=== PATIENT | female | born 1930 | race Caucasian/White ===

== ENCOUNTER 2017-01-08 08:22 | Emergency (ER) | payer OTHER ==
[~2017-01-08] VITALS: Ht 160 cm; Wt 61.0 kg
[~2017-01-08 08:22] MED LIST: AMBIEN10 MG PO; ASPIR-TRIN325 M1 PO; ATIVAN0.5 MG PO; ATIVAN1 MG PO; ATORVASTATIN CA10 MG PO; AUGMENTIN875 MG PO; BENICAR40 MG PO; BESIVANCE5 ML BOTH EYES; CALCIUM 600 MG1 EACH PO; CALCIUM500 M4 PO; CIPRO250 MG PO; CLONIDINE HCL0.1 MG PO; DUREZOL 0.100 DROP/5 BOTH EYES; FIORICET,ESG1 TABLET PO; FLAGYL500 MG PO; INSPRA25 MG PO; LEXAPRO5 MG PO; LIPITOR10 MG PO; LISINOPRIL-HCT1 EAC3 PO; LOPRESSOR50 MG PO; LORAZEPAM1 MG PO; METHYLPREDNISOLO4 M1 PO; MINOXIDIL2.5 MG PO; NEXIUM 24HR20 MG PO; NEXIUM20 MG PO; ONDANSETRON HCL4 MG PO; PERCOCET 5/31 TABLET PO; PROLENSA1.6 ML BOTH EYES; SPIRONOLACTONE25 MG PO; TRAMADOL HCL50 MG PO; ULTRAM50 MG PO; VITAMIN D1000 INTUN PO; VITAMIN D1000 UNIT PO; VITAMIN D400 UNIT PO
[2017-01-08 09:57] LABS: HEMATOCRIT 38.9 % (36.0-46.0); MCH 29.7 PG (29.0-34.0); MCHC 33.4 G/DL (30.0-36.0); MCV 88.8 FL (83-99); MEAN PLAT.VOLUME 10.1 uM^3 (9.5-12.4); PLATELET COUNT 196 K/uL (156-360); RBC DIS.WIDTH-CV 12.7 % (11.8-14.6); RBC DIS.WIDTH-SD 41.2 % (39-53); RED BLOOD COUNT 4.38 M/uL (3.80-5.20)
[2017-01-08 10:05] LABS: CHLORIDE 103 mEq/L (99-109); POTASSIUM 4.4 mEq/L (3.7-5.4); SODIUM 132 mEq/L (136-147)
[2017-01-08 10:07] LABS: GLUCOSE 103 mg/dL (70-99)
[2017-01-08 10:09] LABS: ANION GAP 6 MEQ/L (2-14); TOTAL BILIRUBIN 0.8 mg/dL (0.0-1.0)
[2017-01-08 10:11] LABS: ALKALINE PHOSPHATASE 72 IU/L (3-129); GFR ESTIMATE (CALCULATED) > 59 mL/min/
[2017-01-08 10:12] LABS: UREA NITROGEN (BUN) 11 mg/dL (9-23)
[2017-01-08 10:17] LABS: TROP-I INTERPRETATION NEGATIVE; TROPONIN-I < 0.01 ng/mL (0.0-0.30)
[2017-01-08 15:20] LABS: APPEARANCE CLEAR/COLORLESS
[2017-01-08 15:21] LABS: RED CELL AREA COUNTED 18; RED CELL COUNT 0 /MM^3 (0-1); RED CELL DILUTION 1; WBC AREA COUNTED 18; WBC DILUTION 1; WHITE CELL COUNT 2 /MM^3 (0-5); WHITE CELL RAW COUNT 4
[2017-01-08 15:30] LABS: CSF EOSINOPHILS 0 % (0-25); MONO RAW COUNT 2; MONONUCLEAR WBC'S 100 % (50-90); POLYNUCLEAR WBC'S 0 % (0-3)
[2017-01-08 16:22] VITALS: BP 110/62
== END 2017-01-08 16:23 | disposition home or self-care (01) ==
LOC: EME 08:22
PROVIDERS: Emergency Medicine; Nurse Practitioner Family
PROC: 009U3ZX Drainage of Spinal Canal, Percutaneous Approach, Diagnostic (ICD-10-PCS; principal; 2017-01-08)
DX: R51 Headache (principal); I10 Essential (primary) hypertension; R00.1 Bradycardia, unspecified; I44.0 Atrioventricular block, first degree; Z87.891 Personal history of nicotine dependence
CPT/HCPCS: 70450; 80053; 82945; 84157; 84484; 85027; 87070; 87205; 89051; 93005; 99281; 99285